=== PATIENT | female | born 1990 | race Caucasian/White ===

== ENCOUNTER 2017-09-28 18:00 | Emergency (ER) | payer BC ==
[2017-09-28] MEDS ORDERED: AMOX TR/POT CLAV 500MG/125MG TABLETS (FP) PO ONE (18:05)
[2017-09-28] MEDS ORDERED: DIPHTH,PERTUSS(ACELL),TET 0.5 ML DISP.SYRIN IM ONE (18:05)
--- NOTE | 2017-09-28 18:05 | PDOC ---
History of Present Illness <Christ Wills - Last Filed: 09/28/17 18:06> - General History Source: Patient Exam Limitations: No Limitations - History of Present Illness Initial Comments: 09/28/17 18:10 The patient is a 27 year old female, with no significant past medical history, who presents to the emergency department s/p dog bite to the upper lip earlier this afternoon. The patient reports she went to roller picker her dog, when suddenly the dog bit her in her upper lip. Patient states the dog is typically friendly, but when it is around food or a lot of people it gets anxious. Patient reports her dog is up to date with vaccinations. Patient reports associated pain at site of the bite. She denies any fever, chills, nausea, or vomiting. She reports she does not know when her last tetanus shot was. She denies any recent travel or sick contacts. Allergies: NKDA Past Surgical History: None reported. Social History: Non smoker. No ETOH or recreational drug use. <Ronal Casanova - Last Filed: 09/28/17 18:17> - General Chief Complaint: Bite Stated Complaint: DOG BITE TO THE FACE Time Seen by Provider: 09/28/17 18:04 Past History <Christ Wills - Last Filed: 09/28/17 18:06> <Ronal Casanova - Last Filed: 09/28/17 18:17> - Past Medical History Allergies/Adverse Reactions: Allergies Allergy/AdvReac Type Severity Reaction Status Date / Time No Known Allergies Allergy Verified 09/28/17 18:05 Home Medications: Ambulatory Orders Amox-Tr/K Cl [Augmentin - 500Mg Tablet] 1 tab PO TID #30 tablet 09/28/17 Norethindrone-E.estradiol-Iron [Junel Fe 1 mg-20 Mcg Tablet] 1 each PO DAILY Review of Systems - Review of Systems Able to Perform ROS?: Yes Comments:: 09/28/17 18:10 GENERAL/CONSTITUTIONAL: No fever or chills. No weakness. HEAD, EYES, EARS, NOSE AND THROAT: Yes wound to upper lip with associated pain. No change in vision. No ear pain or discharge. No sore throat. CARDIOVASCULAR: No chest pain or shortness of breath. RESPIRATORY: No cough, wheezing, or hemoptysis. GASTROINTESTINAL: No nausea, vomiting, diarrhea or constipation. GENITOURINARY: No dysuria, frequency, or change in urination. MUSCULOSKELETAL: No joint or muscle swelling or pain. No neck or back pain. SKIN: Yes upper lip wound. No rash NEUROLOGIC: No headache, vertigo, loss of consciousness, or change in strength/ sensation. ENDOCRINE: No increased thirst. No abnormal weight change. HEMATOLOGIC/LYMPHATIC: No anemia, easy bleeding, or history of blood clots. ALLERGIC/IMMUNOLOGIC: No hives or skin allergy. <Ronal Casanova - Last Filed: 09/28/17 18:17> *Physical Exam - Vital Signs Last Vital Signs Temp Pulse Resp BP Pulse Ox 98.5 F 108 H 15 131/93 98 09/28/17 18:04 09/28/17 18:04 09/28/17 18:04 09/28/17 18:04 09/28/17 18:04 - Physical Exam Comments: 09/28/17 18:11 GENERAL: Awake, alert, and fully oriented, in no acute distress HEAD: Linear thin laceration at the philtrum, minimal bleeding, no need for surgical repair. No other signs of trauma EYES: PERRLA, EOMI, sclera anicteric, conjunctiva clear ENT: Auricles normal inspection, hearing grossly normal, nares patent, oropharynx clear without exudates. Moist mucosa NECK: Normal ROM, supple, no lymphadenopathy, JVD, or masses LUNGS: Breath sounds equal, clear to auscultation bilaterally. No wheezes, and no crackles HEART: Regular rate and rhythm, normal S1 and S2, no murmurs, rubs or gallops ABDOMEN: Soft, nontender, normoactive bowel sounds. No guarding, no rebound. No masses EXTREMITIES: Normal range of motion, no edema. No clubbing or cyanosis. No cords, erythema, or tenderness NEUROLOGICAL: Cranial nerves II through XII grossly intact. Normal speech, normal gait SKIN: Warm, Dry, normal turgor, no rashes or lesions noted. <Ronal Casanova - Last Filed: 09/28/17 18:17> *DC/Admit/Observation/Transfer - Discharge Dispostion Admit: No - Attestations Physician Attestion: 09/28/17 18:05 I, Dr. Christ Wills, attest that this document has been prepared under my direction and personally reviewed by me in its entirety. I further attest, that it accurately reflects all work, treatment, procedures and medical decision -making performed by me. <Christ Wills - Last Filed: 09/28/17 18:06> - Attestations Scribe Attestion: 09/28/17 18:12 Documentation prepared by Ronal Casanova, acting as medical billing instructor for Christ Wills DO. <Ronal Casanova - Last Filed: 09/28/17 18:17> Diagnosis at time of Disposition: Dog bite of skin of lip Qualifiers: Encounter type: initial encounter Qualified Code(s): S01.551A - Open bite of lip, initial encounter - Discharge Dispostion Disposition: HOME Condition at time of disposition: Improved - Prescriptions Prescriptions: Amox-Tr/K Cl [Augmentin - 500Mg Tablet] 1 tab PO TID #30 tablet - Patient Instructions Printed Discharge Instructions: How to Care for a Domestic Animal Bite Additional Instructions: Shea- So sorry this happened on . Keep it clean and covered with antibiotic ointment. Take the augmenting for a full ten days. Return to us if any problems. Follow up with your regular doctor. Best Holidays Ever! Dr. Christ Wills
[2017-09-28] MEDS ORDERED: BACITRACIN/POLYMYXIN B SULFATE 15 GM TUBE TP ONE (18:07)
[2017-09-28] MEDS ORDERED: AMOX TR/POT CLAV 500MG/125MG TABLETS (FP) ONE (18:12)
[2017-09-28 18:15] VITALS: BP 131/93; PULSE 108; TEMP 98.5; BMI 20.1
== END 2017-09-28 18:26 | disposition home or self-care (01) ==
LOC: FER 18:00
PROC: 3E0234Z Introduction of Serum, Toxoid and Vaccine into Muscle, Percutaneous Approach (ICD-10-PCS; principal; 2017-09-28)
DX: S01.551A Open bite of lip, initial encounter (principal); X58.XXXA Exposure to other specified factors, initial encounter; Y93.89 Activity, other specified; Y92.9 Unspecified place or not applicable
CPT/HCPCS: 90715; 99282-25